=== PATIENT | female | born 1945 | race Caucasian/White ===

== ENCOUNTER 2017-02-11 08:23 | Emergency (ER) | payer SELFPAY ==
[~2017-02-11] VITALS: Ht 152.4 cm; Wt 56.8 kg
[2017-02-11] MEDS ORDERED: LOSA25TA21 PO (08:40)
[2017-02-11 10:09] LABS: APPEARANCE,URINE TURBID (CLEAR); GLUCOSE, URINE (UA) NEGATIVE (NEGATIVE); KETONES,URINE 40 mg/dL (NEGATIVE); LEUKOCYTE ESTERASE ,URINE LARGE (NEGATIVE); OCCULT BLOOD,URINE LARGE (NEGATIVE); PROTEIN,URINE SEE CONFIRM (NEGATIVE)
[2017-02-11 10:22] LABS: ADD UA MICROSCOPIC YES
[2017-02-11 10:26] LABS: BASOPHILS # (AUTO) 0.02 K/uL (0.00-0.20); BASOPHILS % (AUTO) 0.2 % (0.0-2.0); EOSINOPHILS # (AUTO) 0.09 K/uL (0.00-0.70); EOSINOPHILS % (AUTO) 0.68 % (1.0-6.0); HEMATOCRIT 23.6 % (36-46); HEMOGLOBIN 8.3 g/dL (12.0-16.0); LYMPHOCYTES # (AUTO) 1.1 K/uL (1.0-4.8); LYMPHOCYTES % (AUTO) 8.9 % (22.0-44.0); MEAN CORPUSCULAR HEMOGLOBIN 35.1 pg (26.0-34.0); MEAN CORPUSCULAR HGB CONC 35.2 G/dL (31.0-37.0); MEAN CORPUSCULAR VOLUME 100 fL (80-100); MONOCYTES # (AUTO) 0.5 K/uL (0.1-1.0); NEUTROPHILS # (AUTO) 10.7 K/uL (1.8-7.7); PLATELET COUNT (AUTO) 234 K/uL (150-450); RED BLOOD CELL COUNT(AUTO) 2.37 MIL/uL (4.00-5.20); RED CELL DISTRIBUTION WIDTH 14.4 % (11.5-14.5); WHITE BLOOD COUNT (AUTO) 12.5 K/uL (4.5-11.0)
[2017-02-11 10:27] LABS: NEUTROPHILS % (AUTO) 86.2 % (40.0-70.0)
[2017-02-11 10:32] LABS: SULFOSALICYLIC ACID,URINE 4+ (Negative)
[2017-02-11 10:33] LABS: RBC,URINE Full Field /HPF (0-2); SQUAMOUS EPITHELIAL CELL,UR Few /LPF (None Seen)
[2017-02-11 10:42] LABS: PROTHROMBIN TIME 10.5 SEC (9.4-11.6)
[2017-02-11 10:46] LABS: CALCIUM, TOTAL 9.1 mg/dL (8.8-10.5); CREATININE 1.13 mg/dL (0.60-1.30); POTASSIUM 4.7 mmol/L (3.5-5.1)
[2017-02-11 10:54] LABS: ALBUMIN 4.3 g/dL (3.4-5.0); BILIRUBIN,TOTAL 4.9 mg/dL (0.1-1.0); TOTAL PROTEIN, SERUM 7.4 g/dL (6.4-8.2)
[2017-02-11 11:29] LABS: RBC MORPHOLOGY COMMENT ABNORMAL RBC MORPH
[2017-02-11 15:29] LABS: HEMATOCRIT 23.6 % (36-46); HEMOGLOBIN 8.2 g/dL (12.0-16.0)
[2017-02-11 16:00] VITALS: BP 132/62
== END 2017-02-11 16:30 | disposition left against medical advice (07) ==
LOC: EMS 08:28
DX: D58.9 Hereditary hemolytic anemia, unspecified (principal); R31.9 Hematuria, unspecified; I10 Essential (primary) hypertension
CPT/HCPCS: 74176; 85014; 85018; 85045; 86850; 86900; 86901; 87086; 99285